=== PATIENT | female | born 1935 | race Caucasian/White ===

== ENCOUNTER 2017-01-24 14:10 | Observation (INO) | payer MEDICARE, OTHER ==
[~2017-01-24] VITALS: Ht 154.9 cm; Wt 68.4 kg
[2017-01-24] VITALS (9 sets, daily range): BP systolic 121–152; BP diastolic 56–83; PULSE 60–73; RESP 16–20; TEMP 97.5–97.8; O2SAT 93–98
--- NOTE | 2017-01-24 14:32 | PD ---
HPI Chief Complaint: dizziness Time Seen by Provider: 14:26 Travel History International Travel<30 days: No Contact w/Intl Traveler<30days: No Traveled to known affect area: No History of Present Illness HPI 81-year-old male hypertension, carotid artery aneurysm, multiple medical issues , was at her physician's office getting injections for her varicose veins by a nurse when she started getting dizzy, and disoriented. She states that she thinks her blood sugar had dropped, and she was given sugar water by the nurse. She denies any chest pains, shortness of breath, vomiting, neck pain, throat pain, or any other issues. She states that she still feels a little dizzy. Blood sugars were measured in the ER and within normal limits. Modifying Factors: None Associated Signs & Symptoms: Dizziness, disorientation Risk Factors: Diabetic PFSH Social History Tobacco Use: No Allergies-Medications (Allergen,Severity, Reaction): Coded Allergies: Iodine (Verified Allergy, Severe, Facial redness and swelling, 01/24/17) Reported Meds & Prescriptions Reported Meds & Active Scripts Active K-Tab (Potassium Chloride) 20 Meq Tab 20 Meq PO BID Reported Vasotec (Enalapril Maleate) 5 Mg Tab 5 Mg PO DAILY Lipitor (Atorvastatin Calcium) 40 Mg Tab 40 Mg PO HS Amitriptyline (Amitriptyline HCl) 50 Mg Tab 50 Mg PO HS Citalopram (Citalopram Hydrobromide) 20 Mg Tab 20 Mg PO DAILY Budesonide Neb 0.25 Mg/2 Ml Neb 0.25 Mg NEB DAILY NEB PRN Singulair (Montelukast Sodium) 10 Mg Tab 10 Mg PO HS Theophylline ER 24 HR (Theophylline) 400 Mg Tab 400 Mg PO DAILY Nexium (Esomeprazole DR) 40 Mg Capdr 40 Mg PO DAILY Duoneb (Ipratropium-Albuterol Neb) 0.5-2.5 Mg/3 Ml Neb 1 Nebule INH Q8HR NEB PRN Lantus Inj (Insulin Glargine) 1,000 Unit/10 Ml Vial 20 Units SQ HS Humalog Inj (Insulin Human Lispro) 1,000 Unit/10 Ml Vial 5-25 Units SQ ACHS Max dose at bedtime:( )units; sugars < 70,(0)units; sugars 150-199,(5)units; sugars 200-249,(10)units; sugars 250-299,(15)units; sugars 300-349,(20)units; sugars more than 349,(25)units. Review of Systems Except as stated in HPI: all other systems reviewed are Neg Physical Exam Narrative GENERAL: Well-developed elderly white female currently not in acute distress. Awake, alert, oriented 3. SKIN: Warm and dry. HEAD: Atraumatic. Normocephalic. EYES: Pupils equal and round. No scleral icterus. No injection or drainage. ENT: No nasal bleeding or discharge. Mucous membranes pink and moist. NECK: Trachea midline. No JVD. CARDIOVASCULAR: Regular rate and rhythm. No murmur appreciated. RESPIRATORY: No accessory muscle use. Clear to auscultation. Breath sounds equal bilaterally. GASTROINTESTINAL: Abdomen soft, non-tender, nondistended. Hepatic and splenic margins not palpable. MUSCULOSKELETAL: No obvious deformities. No clubbing. No cyanosis. No edema. NEUROLOGICAL: Awake and alert. No obvious cranial nerve deficits. Motor grossly within normal limits. Normal speech. PSYCHIATRIC: Appropriate mood and affect; insight and judgment normal. Data Data Last Documented VS Vital Signs Date Time Temp Pulse Resp B/P Pulse Ox O2 Delivery O2 Flow Rate FiO2 01/24/17 17:50 68 18 152/69 97 Room Air 01/24/17 14:35 97.8 Orders Electrocardiogram (01/24/17 14:26) Complete Blood Count With Diff (01/24/17 14:26) Comprehensive Metabolic Panel (01/24/17 14:26) Magnesium (Mg) (01/24/17 14:26) Troponin I (01/24/17 14:26) Act Partial Throm Time (Ptt) (01/24/17 14:26) Prothrombin Time / Inr (Pt) (01/24/17 14:26) Urinalysis - C+S If Indicated (01/24/17 14:26) Chest, Single Ap (01/24/17 14:26) Ecg Monitoring (01/24/17 14:26) Iv Access Insert/Monitor (01/24/17 14:26) Oximetry (01/24/17 14:26) Ct Brain W/O Iv Contrast(Rout) (01/24/17 14:37) Potassium Chloride Eff (K-Lyte Cl Eff) (01/24/17 16:00) Admit Order (Ed Use Only) (01/24/17 18:35) Us Carotid Arteries Comp Bilat (01/24/17 ) Labs Laboratory Tests Test 01/24/17 01/24/17 14:50 15:05 White Blood Count 6.1 TH/MM3 Red Blood Count 4.61 MIL/MM3 Hemoglobin 14.6 GM/DL Hematocrit 41.3 % Mean Corpuscular Volume 89.7 FL Mean Corpuscular Hemoglobin 31.6 PG Mean Corpuscular Hemoglobin 35.2 % Concent Red Cell Distribution Width 13.4 % Platelet Count 246 TH/MM3 Mean Platelet Volume 6.8 FL Neutrophils (%) (Auto) 54.1 % Lymphocytes (%) (Auto) 30.5 % Monocytes (%) (Auto) 12.1 % Eosinophils (%) (Auto) 1.4 % Basophils (%) (Auto) 1.9 % Neutrophils # (Auto) 3.3 TH/MM3 Lymphocytes # (Auto) 1.9 TH/MM3 Monocytes # (Auto) 0.7 TH/MM3 Eosinophils # (Auto) 0.1 TH/MM3 Basophils # (Auto) 0.1 TH/MM3 CBC Comment DIFF FINAL Differential Comment Prothrombin Time 11.3 SEC Prothromb Time International 1.0 RATIO Ratio Activated Partial 26.2 SEC Thromboplast Time Sodium Level 143 MEQ/L Potassium Level 3.0 MEQ/L Chloride Level 105 MEQ/L Carbon Dioxide Level 25.5 MEQ/L Anion Gap 13 MEQ/L Blood Urea Nitrogen 6 MG/DL Creatinine 0.62 MG/DL Estimat Glomerular Filtration 92 ML/MIN Rate Random Glucose 145 MG/DL Calcium Level 8.3 MG/DL Magnesium Level 1.9 MG/DL Total Bilirubin 0.4 MG/DL Aspartate Amino Transf 30 U/L (AST/SGOT) Alanine Aminotransferase 32 U/L (ALT/SGPT) Alkaline Phosphatase 81 U/L Troponin I LESS THAN 0.02 NG/ML Total Protein 6.3 GM/DL Albumin 3.2 GM/DL Urine Color YELLOW Urine Turbidity CLEAR Urine pH 5.5 Urine Specific [place] 1.004 Urine Protein NEG mg/dL Urine Glucose (UA) NEG mg/dL Urine Ketones TRACE mg/dL Urine Occult Blood NEG Urine Nitrite NEG Urine Bilirubin NEG Urine Leukocyte Esterase NEG Urine WBC 0-2 /hpf Urine Squamous Epithelial 0-5 /hpf Cells Urine Bacteria RARE /hpf Microscopic Urinalysis Comment CULT NOT INDICATED MDM Medical Decision Making Medical Screen Exam Complete: Yes Emergency Medical Condition: Yes Medical Record Reviewed: Yes Interpretation(s) EKG shows NSR, no ST elevation or depression, and no arrhythmias. No significant T-wave inversions. Laboratory Tests Test 01/24/17 01/24/17 14:50 15:05 Mean Platelet Volume 6.8 FL (7.0-11.0) Monocytes (%) (Auto) 12.1 % (0.0-8.0) Potassium Level 3.0 MEQ/L (3.5-5.1) Blood Urea Nitrogen 6 MG/DL (7-18) Random Glucose 145 MG/DL (74-106) Calcium Level 8.3 MG/DL (8.5-10.1) Troponin I LESS THAN 0.02 NG/ML (0.02-0.05) Total Protein 6.3 GM/DL (6.4-8.2) Albumin 3.2 GM/DL (3.4-5.0) Urine Ketones TRACE mg/dL (NEG) Urine Bacteria RARE /hpf (NONE) Last [address] 01/24/17 1437 Signed Impressions: Service Date/Time: Tuesday, January 24, 2017 15:53 - CONCLUSION: Normal examination. Kyle Morejon MD Chest X-Ray 01/24/17 1426 Signed Impressions: Service Date/Time: Tuesday, January 24, 2017 14:32 - CONCLUSION: No acute disease. Elevation of the right hemidiaphragm. El Flores MD Differential Diagnosis Dizziness, disorientationhypoglycemia versus metabolic issues versus medication side effect Narrative Course Patient has no focal neurological deficits. She is oriented 3 although mildly confused about what happened. It is unclear whether she may have had a hypoglycemic episode and after drinking the sugar water, her blood sugar is more within the normal range now. At this point, lab work did show some hypokalemia and potassium was given in the ER. My plan would be to admit her for disorientation and hypokalemia. In addition, patient states that she has a carotid artery aneurysm which her primary care doctor has been following for at least a year. She states that it makes her nauseous at times. But, patient has had no pain in the neck or throat. She states that she does not feel that there is any change it with is currently. However, considering her dizziness, this warrants further evaluation. Case is discussed with Dr. Manning for admission. Diagnosis Primary Impression: DIZZINESS AND GIDDINESS Additional Impression: Hypokalemia Admitting Information Admitting Physician Requests: Admit Med/Other Pt SpecificInfo: Prescription(s) given Scripts Potassium Chloride ER (K-Tab)20 Meq Tab20 Meq PO BID #10 TAB Ref 0 Prov:Selam Carreon MD 01/24/17 Disposition: 01 DISCHARGE HOME Condition: Stable Selam Carreon MD Jan 24, 2017 14:32
[2017-01-24] MEDS ORDERED: BUDE0.25 NEB (14:45)
[2017-01-24] MEDS ORDERED: IPRASOL INH (14:45)
[2017-01-24] MEDS ORDERED: NEXI40CA PO (14:45)
[2017-01-24] MEDS ORDERED: THEO400T2 PO (14:45)
[2017-01-24] MEDS ORDERED: AMIT50TA3 PO (14:45)
[2017-01-24] MEDS ORDERED: ENAL5TAB98 PO (14:45)
[2017-01-24] MEDS ORDERED: MONT10TA2 PO (14:45)
[2017-01-24] MEDS ORDERED: HUMALOG SQ (14:45)
[2017-01-24] MEDS ORDERED: LIPI40TA PO (14:45)
[2017-01-24] MEDS ORDERED: LANTUS2P SQ (14:45)
[2017-01-24] MEDS ORDERED: CITA20TA4 PO (14:45)
[2017-01-24 15:10] LABS: AUTOMATED NEUTROPHIL # 3.3 TH/MM3 (1.8-7.7); BASOPHIL # 0.1 TH/MM3 (0-0.2); BASOPHIL % 1.9 % (0.0-2.0); EOSINOPHIL # 0.1 TH/MM3 (0-0.4); EOSINOPHIL % 1.4 % (0.0-4.0); HEMATOCRIT 41.3 % (35.0-46.0); HEMO FLAGS DIFF FINAL; LYMPH % 30.5 % (9.0-44.0); LYMPHOCYTE # 1.9 TH/MM3 (1.0-4.8); MEAN CELL VOLUME 89.7 FL (80.0-100.0); MEAN CORPUSCULAR HEMOGLOBIN 31.6 PG (27.0-34.0); MEAN CORPUSCULAR HGB CONC 35.2 % (32.0-36.0); MONO % 12.1 % (0.0-8.0); NEUT % 54.1 % (16.0-70.0); PLATELET COUNT 246 TH/MM3 (150-450); RED BLOOD COUNT 4.61 MIL/MM3 (4.00-5.30); RED CELL DISTRIBUTION WIDTH 13.4 % (11.6-17.2); WHITE BLOOD COUNT 6.1 TH/MM3 (4.0-11.0)
[2017-01-24 15:19] LABS: BLOOD, URINE NEG (NEG); GLUCOSE,URINE NEG (NEG); KETONE, URINE TRACE mg/dL (NEG); NITRITE,URINE NEG (NEG); PH, URINE 5.5 (5.0-8.5)
--- NOTE | 2017-01-24 15:19 | RADHPO ---
EXAM DATE/TIME: 01/24/2017 14:32 [facility] COMPARISON: No previous studies available for comparison. INDICATIONS : Dizziness and weakness. MEDICAL HISTORY : Chronic obstructive pulmonary disease. Asthma. SURGICAL HISTORY : None. ENCOUNTER: Initial ACUITY: 1 day PAIN SCORE: 0/10 LOCATION: Bilateral chest FINDINGS: A single view of the chest demonstrates the lungs to be symmetrically aerated without evidence of mas s, infiltrate or effusion. The cardiomediastinal contours are unremarkable. Osseous structures are intact. The right hemidiaphragm is mildly elevated. CONCLUSION: No acute disease. Elevation of the right hemidiaphragm. El Flores MD on January 24, 2017 at 15:17 Board Certified Radiologist. This report was verified electronically.
[2017-01-24 15:23] LABS: APTT (PATIENT) 26.2 SEC (24.3-30.1); PROTHROMBIN TIME - PATIENT 11.3 SEC (9.8-11.6)
[2017-01-24 15:27] LABS: BACTERIA, URINE RARE /hpf; COMMENT (UR) CULT NOT INDICATED; CULTURE IF INDICATED CULT NOT INDICATED; SQUAMOUS EPITHELIAL CELL URINE 0-5 /hpf (0-5); URINE COLOR YELLOW (YELLW/STRAW); WBC, URINE 0-2 /hpf (0-5)
[2017-01-24 15:48] LABS: ALKALINE PHOSPHATASE 81 U/L (45-117); ALT (GPT) 32 U/L (10-53); ANION GAP 13 MEQ/L (5-15); AST (GOT) 30 U/L (15-37); BICARBONATE 25.5 MEQ/L (21.0-32.0); BLOOD UREA NITROGEN 6 MG/DL (7-18); CHLORIDE 105 MEQ/L (98-107); GLOMERULAR FILTRATION RATE 92 ML/MIN (>89); MAGNESIUM 1.9 MG/DL (1.5-2.5); SODIUM (NA) 143 MEQ/L (136-145); TOTAL BILIRUBIN ADULT 0.4 MG/DL (0.2-1.0)
[2017-01-24] MEDS ORDERED: POTASSIUM CHLORIDE 25 MEQ EFFERVESCENT TAB PO ONE (16:00)
--- NOTE | 2017-01-24 16:28 | RADHPO ---
EXAM DATE/TIME: 01/24/2017 15:53 [facility] COMPARISON: No previous studies available for comparison. INDICATIONS : Altered mental status. Dizziness. RADIATION DOSE: 65.60 CTDIvol (mGy) MEDICAL HISTORY : Hypertension. Diabetes mellitus type 2. SURGICAL HISTORY : Left mastoid. ENCOUNTER: Initial ACUITY: 1 day PAIN SCALE: 0/10 LOCATION: cranial TECHNIQUE: Multiple contiguous axial images were obtained of the head. Using automated exposure control and adj ustment of the mA and/or kV according to patient size, radiation dose was kept as low as reasonably a chievable to obtain optimal diagnostic quality images. FINDINGS: CEREBRUM: The ventricles are normal for age. No evidence of midline shift, mass lesion, hemorrhage or acute in farction. No extra-axial fluid collections are seen. POSTERIOR FOSSA: The cerebellum and brainstem are intact. The 4th ventricle is midline. The cerebellopontine angle i s unremarkable. EXTRACRANIAL: The visualized portion of the orbits is intact. SKULL: The calvaria is intact. No evidence of skull fracture. CONCLUSION: Normal examination. Kyle Morejon MD on January 24, 2017 at 16:25 Board Certified Radiologist. This report was verified electronically.
[2017-01-24] MEDS ORDERED: POTA1TAB4 PO (16:37)
[2017-01-24] MEDS ORDERED: SODIUM CHLOR 0.9% 1000 ML INJ 1,000 ML IV SCH (19:20)
[2017-01-24] MEDS ORDERED: DEXTROSE 50% IN WATER 50 ML VIAL(D50) IV PUSH PRN (19:30)
[2017-01-24] MEDS ORDERED: RESP: BUDESONIDE 0.25 MG/2 ML NEB NEB PRN (19:30)
[2017-01-24] MEDS ORDERED: GLUCAGON 1 MG/ML VIAL OTHER PRN ×2 (19:30)
[2017-01-24] MEDS ORDERED: ENALAPRILAT 1.25 MG/ML VIAL IV PRN (19:30)
[2017-01-24] MEDS ORDERED: SODIUM CHLORIDE 0.9% FLUSH 10 ML FLUSH IV FLUSH PRN (19:30)
--- NOTE | 2017-01-24 20:02 | RADHPO ---
EXAM DATE/TIME: 01/24/2017 19:20 [facility] COMPARISON: No previous studies available for comparison. INDICATIONS : Weakness. MEDICAL HISTORY : Hypertension. Hypercholesterolemia. Diabetic. Carotid artery aneurysm. SURGICAL HISTORY : Appendectomy. Cholecystectomy. Hysterectomy. Left knee replacement. ENCOUNTER: Initial ACUITY: 1 day PAIN SCORE: 0/10 LOCATION: Bilateral neck PEAK SYSTOLIC VELOCITIES (cm/sec): ICA/CCA RATIO: Right: 1.5 Left: 1.2 ICA: Right: 91 Left: 96 CCA: Right: 59 Left: 81 ECA: Right: 96 Left: 103 VERTEBRAL: Right: 49 antegrade Left: 39 antegrade Elevated flow velocities and ICA/CCA ratios have been found to correlate with increased degrees of vessel stenosis, calculated as percentage of diameter relative to a normal segment of distal ICA/CCA FINDINGS: Antegrade flow is seen in both vertebral arteries. There is mild to moderate atherosclerotic plaquing at the origin of both ICAs without any significant stenosis. The patient reports that he has an aneu rysm pulsating behind his throat on the right side, however we could not document any aneurysm based on this examination. CONCLUSION: No evidence for hemodynamically significant stenosis. Josh Draper MD on January 24, 2017 at 19:59 Board Certified Radiologist. This report was verified electronically.
[2017-01-24] MEDS ORDERED: INSULIN DETEMIR 100 UNITS/ML VIAL SQ SCH (21:00)
[2017-01-24] MEDS ORDERED: INSULIN NovoLIN REGULAR SUPPLEMENTAL SCALE SQ SCH (21:00)
[2017-01-24] MEDS: SODIUM CHLORIDE 0.9% FLUSH 10 ML FLUSH IV FLUSH SCH (21:00)
[2017-01-24] MEDS: INSULIN ASPART SUPPLEMENTAL SCALE SQ SCH (21:29)
[2017-01-24] MEDS: AMITRIPTYLINE HCL 50 MG TAB PO SCH (21:29)
[2017-01-24] MEDS: ATORVASTATIN 40 MG TAB PO SCH (21:29)
[2017-01-24] MEDS: MONTELUKAST SODIUM 10 MG TAB PO SCH (21:29)
[2017-01-24 22:43] LABS: THEOPHYLLINE 5.4 MCG/ML (10.0-20.0)
[2017-01-25] VITALS (7 sets, daily range): BP systolic 121–147; BP diastolic 57–73; PULSE 60–89; RESP 18–20; TEMP 97.2–97.9; O2SAT 96–98
[2017-01-25] MEDS: INSULIN ASPART SUPPLEMENTAL SCALE SQ SCH ×4 (05:16→21:00)
[2017-01-25] MEDS: PANTOPRAZOLE SOD 40 MG DELAYED RELEASE TAB PO SCH (08:33)
[2017-01-25] MEDS: ENALAPRIL MALEATE 5 MG TAB PO SCH (08:33)
[2017-01-25] MEDS: CITALOPRAM HYDROBROMIDE 20 MG TAB PO SCH (08:33)
[2017-01-25] MEDS: SODIUM CHLORIDE 0.9% FLUSH 10 ML FLUSH IV FLUSH SCH ×2 (08:33→21:00)
[2017-01-25] MEDS: THEOPHYLLINE 200 MG EXTENDED RELEASE CAP PO SCH (08:34)
[2017-01-25] MEDS: SODIUM CHLOR 0.9% 1000 ML INJ 1,000 ML IV SCH (08:45)
--- NOTE | 2017-01-25 08:45 | HHI.HP ---
HPI Service [facility] Hospitalists Primary Care Physician Non-Staff Admission Diagnosis dizziness/hypokalemia Diagnoses: Chief Complaint: Dizziness Travel History International Travel<30 Days: No Contact w/Intl Traveler <30 Da: No Traveled to Known Affected Are: No History of Present Illness This is a 81-year-old female with a past medical history significant for insulin -dependent diabetes, hypertension, COPD, dyslipidemia, depression and history of carotid artery aneurysm with resultant dysphagia who presented to [facility] ED with complaints of dizziness. Patient states that she was at a physician's office getting injections for her varicose veins when shortly following the procedure she developed dizziness and unsteady gait with feeling of generalized weakness. Patient states she was given sugar water by the tech with improvement in her symptoms. She denies any associated chest pain, shortness of breath, nausea, vomiting, cough, palpitations, vision changes, hearing loss, slurred speech, focal weakness or numbness or tingling. She does report having a sensation that she was going to pass out. Patient states that she was recently ill with nausea, vomiting and diarrhea for a week after being visited by her sick grandchildren. As a result she had not been eating and drinking her normal amount and states that she thinks she might have been dehydrated. She has taken her insulin for 3 days due to her decrease in appetite. The symptoms had resolved about 2 days prior to having her varicose veins injected. She was also treated for shingles a few weeks ago. She reports that she was basically feeling back to her normal self by the time she came to the ED. In the ED, carotid ultrasounds were obtained and showed no evidence for hemodynamically significant stenosis. Chest x-ray showed no acute disease. Head CT was normal. Glucose was 145. CBC was unremarkable. She was noted to have some hypokalemia with a potassium of 3.0 and received repletion while in the ED. Troponin was less than 0.02. Review of Systems Constitutional: COMPLAINS OF: Dizziness (as stated in history of present illness), Change in appetite (decreased appetite for the past week due to suspected gastroenteritis), DENIES: Fever, Chills Endocrine: DENIES: Polydipsia, Polyuria Eyes: COMPLAINS OF: Diplopia (chronic, unchanged, patient wears prism lenses), DENIES: Blurred vision, Vision loss Ears, nose, mouth, throat: COMPLAINS OF: Tinnitus (chronic, unchanged), DENIES : Throat pain, Ear Pain, Running Nose, Sinus Pain Respiratory: DENIES: Cough, Wheezing, Shortness of breath Cardiovascular: DENIES: Chest pain, Palpitations, Syncope, Lower Extremity Edema Gastrointestinal: COMPLAINS OF: Diarrhea, Nausea, Vomiting (recent suspected gastroenteritis with nausea vomiting and diarrhea 1 week, now resolved), DENIES: Abdominal pain, Black stools, Bloody stools Genitourinary: DENIES: Urgency, Hematuria, Dysuria Musculoskeletal: DENIES: Joint Swelling, Back pain, Neck pain Integumentary: DENIES: Pruritus, Rash Hematologic/lymphatic: DENIES: Lymphadenopathy Immunologic/allergic: DENIES: Urticaria Neurologic: COMPLAINS OF: Abnormal gait (felt unsteady after receiving varicose veins injections yesterday, now resolved), DENIES: Headache, Localized weakness, Paresthesias, Seizures, Speech Problems Psychiatric: COMPLAINS OF: Depression (chronic depression, worse since the loss of her of 40 years in September 2016), DENIES: Confusion, Suicidal Ideation Past Family Social History Past Medical History Hypertension Insulin-dependent diabetes Dyslipidemia GERD Carotid artery aneurysm COPD Depression Past Surgical History Cataract surgery Partial thyroidectomy Cholecystectomy Hysterectomy Laminectomy L3 to L5 Left total knee replacement Left mastoidectomy with excision of cholesteatoma Reported Medications K-Tab (Potassium Chloride) 20 Meq Tab 20 Meq PO BID Vasotec (Enalapril Maleate) 5 Mg Tab 5 Mg PO DAILY Lipitor (Atorvastatin Calcium) 40 Mg Tab 40 Mg PO HS Amitriptyline (Amitriptyline HCl) 50 Mg Tab 50 Mg PO HS Citalopram (Citalopram Hydrobromide) 20 Mg Tab 20 Mg PO DAILY Budesonide Neb 0.25 Mg/2 Ml Neb 0.25 Mg NEB DAILY NEB PRN Singulair (Montelukast Sodium) 10 Mg Tab 10 Mg PO HS Theophylline ER 24 HR (Theophylline) 400 Mg Tab 400 Mg PO DAILY Nexium (Esomeprazole DR) 40 Mg Capdr 40 Mg PO DAILY Duoneb (Ipratropium-Albuterol Neb) 0.5-2.5 Mg/3 Ml Neb 1 Nebule INH Q8HR NEB PRN Lantus Inj (Insulin Glargine) 1,000 Unit/10 Ml Vial 20 Units SQ HS Humalog Inj (Insulin Human Lispro) 1,000 Unit/10 Ml Vial 5-25 Units SQ ACHS Max dose at bedtime:( )units; sugars < 70,(0)units; sugars 150-199,(5)units; sugars 200-249,(10)units; sugars 250-299,(15)units; sugars 300-349,(20)units; sugars more than 349,(25)units. Allergies: Coded Allergies: Iodine (Verified Allergy, Severe, Facial redness and swelling, 01/24/17) Active Ordered Medications Current Medications Medications (Trade) Dose Ordered Sig/Homer Route Start Time Stop Time Status Last Admin (NS Flush) 2 ml BID IV FLUSH 01/24/17 21:00 01/24/17 21:00 (NS Flush) 2 ml UNSCH PRN IV FLUSH 01/24/17 19:30 (Vasotec Inj) 1.25 mg Q4H PRN IV 01/24/17 19:30 (D50w (Vial) Inj) 25 ml UNSCH PRN IV PUSH 01/24/17 19:30 (Glucagon Inj) 1 mg UNSCH PRN OTHER 01/24/17 19:30 (Elavil) 50 mg HS PO 01/24/17 21:00 01/24/17 21:29 (Lipitor) 40 mg HS PO 01/24/17 21:00 01/24/17 21:29 (CeleXA) 20 mg DAILY PO 01/25/17 09:00 (Vasotec) 5 mg DAILY PO 01/25/17 09:00 (Levemir Inj) 20 units HS SQ 01/24/17 21:00 01/24/17 21:30 (Singulair) 10 mg HS PO 01/24/17 21:00 01/24/17 21:29 (Gunner-24) 400 mg DAILY PO 01/25/17 09:00 (Protonix) 40 mg DAILY PO 01/25/17 09:00 Family History Father with history of CVA 2 Brother history of CVA 2 Social History Patient has a remote history of tobacco use of a half pack per day for 17 years but quit in 1981. She has rare alcohol consumption of a glass of wine. She denies any illicit drug use. Patient is recently after losing her of 40 years of September 2016. She has 2 daughters neither of whom live in the area, one lives in [place], [place] the other in [facility]. Physical Exam Vital Signs Vital Signs Date Time Temp Pulse Resp B/P Pulse Ox O2 Delivery O2 Flow Rate FiO2 01/25/17 04:00 97.6 60 20 147/68 97 01/24/17 23:39 60 01/24/17 23:30 66 20 124/83 97 01/24/17 23:30 97.5 61 20 150/72 98 01/24/17 22:06 68 20 137/65 98 01/24/17 21:15 66 20 121/68 98 01/24/17 20:08 66 20 136/63 98 01/24/17 19:50 20 98 01/24/17 17:50 68 18 152/69 97 Room Air 01/24/17 15:35 68 16 124/56 93 Room Air 01/24/17 15:00 96 Room Air 01/24/17 14:35 97.8 73 16 137/65 96 Physical Exam GENERAL: This is a well-nourished, well-developed patient, in no apparent distress. SKIN: No rashes, ecchymoses or lesions. Cool and dry. HEAD: Atraumatic. Normocephalic. No temporal or scalp tenderness. EYES: Pupils equal round and reactive. Extraocular motions intact. No scleral icterus. No injection or drainage. ENT: Nose without bleeding, purulent drainage or septal hematoma. 3cm pulsating right sided mass noted in posterior pharynx. Airway patent. NECK: Trachea midline. No JVD or lymphadenopathy. Supple, nontender, no meningeal signs. CARDIOVASCULAR: Regular rate and rhythm without murmurs, gallops, or rubs. RESPIRATORY: Clear to auscultation. Breath sounds equal bilaterally. No wheezes , rales, or rhonchi. GASTROINTESTINAL: Abdomen soft, non-tender, nondistended. No hepato-splenomegaly , or palpable masses. No guarding. MUSCULOSKELETAL: Extremities without clubbing or cyanosis. Trace edema RLE. LLE wrapped in SIGIFREDO s/p sclerotherapy. No calf tenderness. NEUROLOGICAL: Awake and alert. Moves all extremities. No focal neurologic deficit. Laboratory Laboratory Tests Test 01/24/17 01/24/17 14:50 15:05 White Blood Count 6.1 Red Blood Count 4.61 Hemoglobin 14.6 Hematocrit 41.3 Mean Corpuscular Volume 89.7 Mean Corpuscular Hemoglobin 31.6 Mean Corpuscular Hemoglobin 35.2 Concent Red Cell Distribution Width 13.4 Platelet Count 246 Mean Platelet Volume 6.8 Neutrophils (%) (Auto) 54.1 Lymphocytes (%) (Auto) 30.5 Monocytes (%) (Auto) 12.1 Eosinophils (%) (Auto) 1.4 Basophils (%) (Auto) 1.9 Neutrophils # (Auto) 3.3 Lymphocytes # (Auto) 1.9 Monocytes # (Auto) 0.7 Eosinophils # (Auto) 0.1 Basophils # (Auto) 0.1 CBC Comment DIFF FINAL Differential Comment Prothrombin Time 11.3 Prothromb Time International 1.0 Ratio Activated Partial 26.2 Thromboplast Time Sodium Level 143 Potassium Level 3.0 Chloride Level 105 Carbon Dioxide Level 25.5 Anion Gap 13 Blood Urea Nitrogen 6 Creatinine 0.62 Estimat Glomerular Filtration 92 Rate Random Glucose 145 Calcium Level 8.3 Magnesium Level 1.9 Total Bilirubin 0.4 Aspartate Amino Transf 30 (AST/SGOT) Alanine Aminotransferase 32 (ALT/SGPT) Alkaline Phosphatase 81 Troponin I LESS THAN 0.02 Total Protein 6.3 Albumin 3.2 Theophylline Level 5.4 Urine Color YELLOW Urine Turbidity CLEAR Urine pH 5.5 Urine Specific [place] 1.004 Urine Protein NEG Urine Glucose (UA) NEG Urine Ketones TRACE Urine Occult Blood NEG Urine Nitrite NEG Urine Bilirubin NEG Urine Leukocyte Esterase NEG Urine WBC 0-2 Urine Squamous Epithelial 0-5 Cells Urine Bacteria RARE Microscopic Urinalysis Comment CULT NOT INDICATED Result Diagram: 01/24/17 1450 01/24/17 1450 Imaging Last [address] 01/24/17 1437 Signed Impressions: Service Date/Time: Tuesday, January 24, 2017 15:53 - CONCLUSION: Normal examination. Kyle Morejon MD Chest X-Ray 01/24/17 1426 Signed Impressions: Service Date/Time: Tuesday, January 24, 2017 14:32 - CONCLUSION: No acute disease. Elevation of the right hemidiaphragm. El Flores MD Carotid Artery Ultrasound 01/24/17 0000 Signed Impressions: Service Date/Time: Tuesday, January 24, 2017 19:20 - CONCLUSION: No evidence for hemodynamically significant stenosis. Josh Draper MD Assessment and Plan Assessment and Plan 81-year-old female with a past medical history significant for insulin- dependent diabetes, hypertension, COPD, dyslipidemia, depression and history of carotid artery aneurysm who presented to [facility] ED with complaints of dizziness. Admitted overnight per discussion with ED physician patient is a high risk for TIA needed observation admission to Rule out TIA - Admitted to observation - Monitor on telemetry for any signs of arrhythmia - Mostly dehydration with history of recent suspected gastroenteritis with possible vasovagal episode following leg vein varicose injections - Chest x-ray personally interpreted and unremarkable. Carotid ultrasound shows no evidence of significant stenosis. CT of the head negative. - IV fluids - Up with PT - Neuro checks - Echocardiogram - Holter monitor as outpatient - Orthostatic blood pressures - Carotid ultrasound is being done Hypertension - Resume home meds - monitor BP Diabetes - Accu-Chek - Insulin sliding scale - A1c is pending - Hold home insulin for now COPD - Resume home bronchodilators - Supplemental oxygen when necessary - DuoNeb's when necessary - Theophylline level low 5.4 Dyslipidemia - Resume home statin - Lipid panel pending Hypokalemia - Given repletion in the ED - Recheck potassium level and determine if further repletion as indicated Right-sided carotid artery aneurysm - Patient states she does not follow up with anyone - History of left mastoidectomy and excision of cholesteatoma as well as partial thyroidectomy secondary to mass on the isthmus - Carotid ultrasound obtained this admission unable to appreciate aneurysm on study - Complaining it is increasing in size and causing difficulty with swallowing - Strong family history CVA - Discussed with Dr. Hendricks who will be consulted to see the patient. CTA of carotid ordered at his request. DVT prophylaxis - SCD/MIKEL hose - Up with PT Written by Janeth Aguilar PA-C acting as scribe for Dr. Manning on 01/25/17 at 13:16. Janeth Aguilar Jan 25, 2017 08:45 Kathya Manning MD Jan 25, 2017 14:55
[2017-01-25] MEDS: RESP: ALBUTEROL 2.5 MG/IPRATROPIUM 0.5 MG NEB (PRN) NEB ×2 (08:51→20:10)
[2017-01-25] MEDS: ASPIRIN EC 81 MG TABEC PO SCH (09:08)
[2017-01-25 10:05] LABS: BICARBONATE 26.2 MEQ/L (21.0-32.0); HDL CHOLESTEROL 40.6 MG/DL (40.0-60.0); POTASSIUM 3.1 MEQ/L (3.5-5.1)
--- NOTE | 2017-01-25 11:04 | EKG ---
Date Performed: 01/24/2017 Time Performed: 14:38:34 PTAGE: 81 years EKG: Sinus rhythm Left ventricular hypertrophy by voltage only Abnormal ECG NO PREVIOUS TRACING DOCTOR: Faheem Guthrie Interpretating Date/Time 01/25/2017 11:03:17
[2017-01-25 17:24] LABS: HEMOGLOBIN A1a 1.1 %; HEMOGLOBIN A1b 1.9 %; HEMOGLOBIN Ao 83.7 %; HEMOGLOBIN LA1C 1.8 %; HEMOGLOBIN P3 3.6 %
--- NOTE | 2017-01-25 20:01 | EC ---
Study Study Date:01/25/2017 STUDY CONCLUSIONS SUMMARY - Left ventricle: The cavity size was normal. Wall thickness was normal. Systolic function was normal. The estimated ejection fraction was 65%. Wall motion was normal; there were no regional wall motion abnormalities. - Mitral valve: Mild regurgitation. - Right ventricle: The cavity size was mildly dilated. Wall thickness was normal. - Tricuspid valve: Mild regurgitation. - Pulmonary arteries: Systolic pressure was mildly increased. PA peak pressure: 42mm Hg (S). If LV function is below 40, please consider prescribing an ACEI or ARB or document rationale for non-use. PROCEDURE DATA STUDY STATUS: Elective. Procedure: Transthoracic echocardiography. Image quality was good. Scanning was performed from the parasternal, apical, and subcostal acoustic windows. Study completion: The patient tolerated the procedure well. Transthoracic echocardiography. M-mode, complete 2D, complete spectral Doppler, and color Doppler. Height: Height: 61in. Weight: Weight: 148.7lb. Body mass index: BMI: 28.2kg/m^2. Body surface area: BSA: 1.67m^2. Patient status: Inpatient. CARDIAC ANATOMY LEFT VENTRICLE: The cavity size was normal. Wall thickness was normal. Systolic function was normal. The estimated ejection fraction was 65%. Wall motion was normal; there were no regional wall motion abnormalities. AORTIC VALVE: Trileaflet; mildly thickened leaflets. Doppler: Transvalvular velocity was within the normal range. There was no stenosis. No regurgitation. Valve area: 2.04cm^2 (Vmax). Indexed valve area: 1.22cm^2/m^2 (Vmax). AORTA: Aortic root: The aortic root was normal in size. MITRAL VALVE: Structurally normal valve. Doppler: Transvalvular velocity was within the normal range. There was no evidence for stenosis. Mild regurgitation. LEFT ATRIUM: The atrium was normal in size. RIGHT VENTRICLE: The cavity size was mildly dilated. Wall thickness was normal. PULMONIC VALVE: Doppler: Transvalvular velocity was within the normal range. There was no evidence for stenosis. No regurgitation. TRICUSPID VALVE: Structurally normal valve. Doppler: Transvalvular velocity was within the normal range. Mild regurgitation. PULMONARY ARTERY: The main pulmonary artery was normal-sized. Systolic pressure was mildly increased. RIGHT ATRIUM: The atrium was normal in size. PERICARDIUM: There was no pericardial effusion. SYSTEMIC VEINS: Inferior vena cava: The vessel was normal in size. Patient weight: 148.7lb _Ejection fraction:_ 65-75% _Fractional shortening:_ 32% up to 5Kg 5-11.5Kg 11.6-22.9Kg 23-45Kg 45-57Kg Aortic Root 7-13 <17 13-22 17-27 17-27 LA diam 6-13 <23 24-38 33-47 37-40 RVID 10-17 7-15 7-15 7-18 8-17 LVIDd 12-22 <32 24-38 33-47 37-40 LVPW 2-4 3-6 5-7 6-8 7-8 IVS 2-4 3-6 5-7 6-8 7-8 BASIC MEASUREMENTS ADULT NORMAL Left ventricle LV internal dimension, ED, chordal *37.6 mm 43-52 level, PLAX LV internal dimension, ES, chordal 26.4 mm 23-38 level, PLAX Fractional shortening, chordal level, 30 % >29 PLAX LV posterior wall thickness, ED 8.61 mm IVS/LVPW ratio, ED 0.99 <1.3 Ventricular septum Septal thickness, ED 8.55 mm Aortic valve Leaflet separation 16 mm 15-26 BASIC MEASUREMENTS ADULT NORMAL Aortic valve Leaflet separation 16 mm 15-26 Aorta Root diameter, ED 27 mm 20-37 Left atrium Anterior-posterior dimension, ES 31 mm 19-40 Anterior-posterior dimension index, ES 1.86 cm/m^2 <2.2 LA/aortic root ratio 1.15 DOPPLER MEASUREMENTS ADULT NORMAL Main pulmonary artery Pressure, S *42 mm Hg =30 Aortic valve Peak velocity, S 153 cm/s Valve area, Vmax 2.04 cm^2 Valve area index, Vmax 1.22 cm^2/m^2 Mitral valve Peak E-wave velocity 65.6 cm/s Peak A-wave velocity 85.4 cm/s Deceleration time 183 ms 150-230 Peak E/A ratio 0.8 Maximal regurgitant velocity 316 cm/s Tricuspid valve Regurgitant peak velocity 284 cm/s Peak RV-RA gradient, S 32 mm Hg Maximal regurgitant velocity 284 cm/s Systemic veins Estimated CVP 10 mm Hg Right ventricle RV pressure, S *42 mm Hg <30 Pulmonic valve Peak velocity, S 105 cm/s LEGEND: Mean values are shown as u=mean value. Asterisk (*) diana values outside specified normal range. Amended JamesHoodhernando [id number]
--- NOTE | 2017-01-25 20:32 | MB ---
cc: MAI MATOS MD DATE OF CONSULTATION: 01/25/2017 REASON FOR CONSULTATION: Possible carotid artery aneurysm. HISTORY OF PRESENT DISEASE: This 81 year-old lady appears somewhat younger than her actual age, presents with dizziness and weakness. The patient states that for about a week or two she had diarrhea, nausea and vomiting and lost some weight. The patient states that she also was seen by somebody for varicose veins and she was told that she has something pulsating in her neck, hence the suspicion of the aneurysm somehow came up. The patient is now in the process of workup. PAST MEDICAL HISTORY: 1. Diabetes mellitus 2. COPD 3. Hypertension. 4. Depression. PAST SURGICAL HISTORY: 1. Cholecystectomy. 2. Partial thyroidectomy. 3. Cataract surgery. 4. Hysterectomy 5. Left total knee replacement 6. Some sort of laminectomy probably lumbar. MEDICATIONS: Can be found in the record. SOCIAL HISTORY: The patient smoked many years ago but now she is eating and drinking very healthy. Her only last year at [facility] and she is not happy with them. 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 PHYSICAL EXAMINATION: The patient is an 81 year-old lady in no acute distress. HEENT: Normocephalic, no trauma to the head. Pupils equal and reactive. Extraocular movements intact. NECK: Bilateral carotid pulses, no bruits. Indeed on palpation of the neck, the patient has some several small lymph nodes in the neck and in the submandibular area on the right on palpation it really does appear that there is a pulsating mass. Having said that, this measures about 1 cm in diameter and below is the explanation. HEART: Regular rhythm. CHEST: Bilateral breath sounds. ABDOMEN: Soft, active bowel sounds. No masses. Scars from previous surgery. EXTREMITIES: Within normal limits with good proximal and distal pulses. No signs of vascular deficit. It should be noted that the patient probably lost a fair amount of weight in a very short period of time considering that she has a panus, looks like she might have weighed more in the past. IMPRESSION/RECOMMENDATIONS: Patient with question of a pulsating mass in the neck. Indeed on palpation, the patient does have about 1 cm neck mass in the carotid area which is pulsatile. Nonetheless, more often than not, this is not an aneurysm but either a lymph node adjacent to the carotid artery transmitting the pulsations or rarely glomus caroticus which is of course benign tumor of the carotid bifurcation and receptor area. Either way, we will do CTA on the patient and see which structures I hear involve this is a spurious diagnosis or something we should proceed further workup on. Thank you for the referral. I will continue to follow the patient with you. Mai GIORDANO /7:56 PM /8:24 PM
[2017-01-25] MEDS: MONTELUKAST SODIUM 10 MG TAB PO SCH (21:45)
[2017-01-25] MEDS: ATORVASTATIN 40 MG TAB PO SCH (21:45)
[2017-01-25] MEDS: AMITRIPTYLINE HCL 50 MG TAB PO SCH (21:45)
[2017-01-26] VITALS (7 sets, daily range): BP systolic 134–189; BP diastolic 73–85; PULSE 62–88; RESP 14–20; TEMP 96.2–98.4; O2SAT 92–96
[2017-01-26] MEDS: predniSONE 50 MG TAB PO SCH ×3 (01:16→13:26)
[2017-01-26] MEDS: SODIUM CHLOR 0.9% 1000 ML INJ 1,000 ML IV SCH ×2 (03:36→17:21)
[2017-01-26] MEDS: INSULIN ASPART SUPPLEMENTAL SCALE SQ SCH ×4 (05:53→21:05)
[2017-01-26] MEDS: SODIUM CHLORIDE 0.9% FLUSH 10 ML FLUSH IV FLUSH SCH ×2 (09:00→20:58)
[2017-01-26] MEDS ORDERED: POTASSIUM CHLORIDE 10 MEQ CONTROLLED RELEASE TAB PO ONE (09:00)
[2017-01-26] MEDS: ENALAPRIL MALEATE 5 MG TAB PO SCH (10:35)
[2017-01-26] MEDS: THEOPHYLLINE 200 MG EXTENDED RELEASE CAP PO SCH (10:35)
[2017-01-26] MEDS: ASPIRIN EC 81 MG TABEC PO SCH (10:35)
[2017-01-26] MEDS: CITALOPRAM HYDROBROMIDE 20 MG TAB PO SCH (10:35)
[2017-01-26] MEDS: PANTOPRAZOLE SOD 40 MG DELAYED RELEASE TAB PO SCH (10:35)
[2017-01-26 11:49] LABS: BICARBONATE 24.7 MEQ/L (21.0-32.0); POTASSIUM 3.8 MEQ/L (3.5-5.1)
[2017-01-26] MEDS ORDERED: diphenhydrAMINE HCL 50 MG CAP PO ONE (13:00)
[2017-01-26] MEDS ORDERED: IOHEXOL 350 MG/ML 10 ML VIAL (for RAD DIAG) IV ONE (14:53)
--- NOTE | 2017-01-26 16:20 | RADHPO ---
EXAM DATE/TIME: 01/26/2017 14:39 [place] COMPARISON: CT BRAIN W/O CONTRAST, January 24, 2017, 15:53. INDICATIONS : Evaluate for aneurysm. IV CONTRAST: 90 cc Omnipaque 350 (iohexol) IV RADIATION DOSE: 42.77 CTDIvol (mGy) MEDICAL HISTORY : Diabetes mellitus type 2. Hypertension. SURGICAL HISTORY : Hysterectomy. Appendectomy.Cholecystectomy. ENCOUNTER: Initial ACUITY: 2 days PAIN SCALE: 0/10 LOCATION: neck Elevated flow velocities and ICA/CCA ratios have been found to correlate with increased degrees of vessel stenosis, calculated as percentage of diameter relative to a normal segment of distal ICA/CCA. Patient was premedicated for underlying contrast media allergy. TECHNIQUE: Volumetric scanning was performed using a multirow detector CT scanner. The data was post processed with a variety of visualization algorithms including full-volume maximum intensity projection, multip lanar sliding thin-slab reformation, curved-planar reformation, and surface-rendering techniques. Us ing automated exposure control and adjustment of the mA and/or kV according to patient size, radiatio n dose was kept as low as reasonably achievable to obtain optimal diagnostic quality images. FINDINGS: AORTIC ARCH: There is a three-vessel origin of the great vessels from the aorta. No evidence of ostial narrowing. RIGHT CAROTID: The common carotid artery is intact. There is minimal atherosclerotic plaquing of the bifurcation. Th e carotid bulb has a normal configuration without ulceration or narrowing. The internal carotid arter y lumen is smooth without stenosis. The internal carotid is very tortuous throughout its course. The internal carotid above its and displaces the mucosa of the oropharynx medially. The external carotid artery is intact. LEFT CAROTID: The common carotid artery is intact. There is minimal atherosclerotic plaquing of the bifurcation. T he carotid bulb has a normal configuration without ulceration or narrowing. The internal carotid art chucho lumen is smooth without stenosis. The external carotid artery is intact. VERTEBRALS: The left vertebral is diminutive in size. No stenotic lesions are seen. CONCLUSION: 1. No hemodynamically significant carotid artery stenosis identified. 2. The course of the right internal carotid is very tortuous. This courses through the right paraphar yngeal space and abuts the soft tissues of the right side of the oral pharynx. There is displacement of the soft tissues medially. There is only a thin covering of tonsillar tissue above this. Pelon Lira MD on January 26, 2017 at 16:13 Board Certified Radiologist. This report was verified electronically.
--- NOTE | 2017-01-26 19:12 | HHI.PR ---
Subjective Remarks Follow-up on patient with dizziness and hypokalemia. Patient states she feels well. No new complaints today. History of right-sided carotid artery aneurysm , patient witnessed eating dinner without any noticeable dysphagia. Objective Vitals Vital Signs Date Time Temp Pulse Resp B/P Pulse Ox O2 Delivery O2 Flow Rate FiO2 01/26/17 18:02 96.9 62 16 179/85 92 01/26/17 14:43 96.2 66 14 170/85 92 01/26/17 10:26 96.5 63 16 134/80 93 01/26/17 08:00 66 01/26/17 04:00 97.0 69 20 156/73 92 01/26/17 00:00 97.1 71 18 159/79 96 01/25/17 22:00 69 01/25/17 20:00 97.2 72 18 144/66 98 I/O 01/25/17 01/25/17 01/25/17 01/26/17 01/26/17 01/26/17 07:00 15:00 23:00 07:00 15:00 23:00 Intake Total 455 ml 450 ml 740 ml 630 ml Output Total 0 ml Balance 455 ml 450 ml 740 ml 630 ml Intake Oral 0 ml 450 ml 240 ml IV Total 455 ml 500 ml 630 ml Output Urine Total 0 ml # Voids 2 6 3 # Bowel Movements 0 0 Result Diagram: 01/24/17 1450 01/26/17 0900 Imaging Last 48 hours Impressions Neck CTA 01/25/17 0000 Signed Impressions: Service Date/Time: January 14:39 - CONCLUSION: 1. No hemodynamically significant carotid artery stenosis identified. 2. The course of the right internal carotid is very tortuous. This courses through the right parapharyngeal space and abuts the soft tissues of the right side of the oral pharynx. There is displacement of the soft tissues medially. There is only a thin covering of tonsillar tissue above this. Pelon Lira MD Objective Remarks GENERAL: This is a well-nourished, well-developed patient, in no apparent distress. Patient sitting up in bed eating dinner. AandO 3. SKIN: Warm and dry. HEAD: Atraumatic. Normocephalic. EYES: EOMI. ENT: Nose without bleeding, purulent drainage or septal hematoma. 3cm pulsating right sided mass noted in posterior pharynx. Airway patent. NECK: Trachea midline. No JVD or lymphadenopathy. Supple, nontender, no meningeal signs. CARDIOVASCULAR: Regular rate and rhythm without murmurs, gallops, or rubs. RESPIRATORY: Clear to auscultation. Breath sounds equal bilaterally. No wheezes , rales, or rhonchi. GASTROINTESTINAL: Abdomen soft, non-tender, nondistended. No hepato-splenomegaly , or palpable masses. No guarding. MUSCULOSKELETAL: Extremities without clubbing or cyanosis. Trace edema RLE. LLE wrapped in SIGIFREDO s/p sclerotherapy. No calf tenderness. NEUROLOGICAL: Awake and alert. Moves all extremities. No focal neurologic deficit. Medications and IVs Current Medications Medications (Trade) Dose Ordered Sig/Homer Route Start Time Stop Time Status Last Admin (NS Flush) 2 ml BID IV FLUSH 01/24/17 21:00 01/25/17 21:00 (NS Flush) 2 ml UNSCH PRN IV FLUSH 01/24/17 19:30 (Vasotec Inj) 1.25 mg Q4H PRN IV 01/24/17 19:30 (D50w (Vial) Inj) 25 ml UNSCH PRN IV PUSH 01/24/17 19:30 (Glucagon Inj) 1 mg UNSCH PRN OTHER 01/24/17 19:30 (Elavil) 50 mg HS PO 01/24/17 21:00 01/25/17 21:45 (Lipitor) 40 mg HS PO 01/24/17 21:00 01/25/17 21:45 (CeleXA) 20 mg DAILY PO 01/25/17 09:00 01/26/17 10:35 (Vasotec) 5 mg DAILY PO 01/25/17 09:00 01/26/17 10:35 (Levemir Inj) 20 units HS SQ 01/24/17 21:00 Hold 01/24/17 21:30 (Singulair) 10 mg HS PO 01/24/17 21:00 01/25/17 21:45 (Gunner-24) 400 mg DAILY PO 01/25/17 09:00 01/26/17 10:35 Pantoprazole Sodium 40 mg 40 mg DAILY PO 01/25/17 09:00 01/26/17 10:35 (NS 1000 ml Inj) 1,000 ml @ 60 mls/hr [id number] IV 01/25/17 08:45 01/26/17 17:21 (Ecotrin Ec) 81 mg DAILY PO 01/25/17 09:00 01/26/17 10:35 A/P Assessment and Plan 81-year-old female with a past medical history significant for insulin- dependent diabetes, hypertension, COPD, dyslipidemia, depression and history of carotid artery aneurysm who [facility] ED with complaints of dizziness. Admitted overnight per discussion with ED physician patient is a high risk for TIA needed observation admission to Rule out TIA Dehydration and likely vasovagal episode - Recent suspected gastroenteritis infection causing dehydration followed by likely vasovagal episode after receiving varicose vein leg injections - Patient much improved. No recurrence of dizziness or weakness since admission. - Discontinue telemetry - Chest x-ray personally interpreted and unremarkable. Carotid ultrasound shows no evidence of significant stenosis. CT of the head negative. - Patient appears to be eating well. DC IV fluids. - Up with PT - patient able to ambulate 200 feet - Echocardiogram completed: Ejection fraction 65% with no wall motion abnormalities, mild regurg of the mitral valve and tricuspid valve, mildly increased systolic pressure with PA pressure 42mm Hg - Holter monitor as outpatient - No change with orthostatic BP measurement - Carotid ultrasound: No evidence for hemodynamically significant stenosis. Hypertension - Controlled - continue home meds - monitor BP Diabetes - Blood sugar 195 - Accu-Chek - Insulin sliding scale - A1c is 7.4 - Levemir 10 units subcutaneous COPD - Continue home bronchodilators - Supplemental oxygen when necessary - DuoNeb's when necessary - Theophylline level low 5.4 Dyslipidemia - Continue home statin - Lipid panel well within normal limits Hypokalemia - Resolved Right-sided carotid artery aneurysm - Patient states she does not follow up with anyone - History of left mastoidectomy and excision of cholesteatoma as well as partial thyroidectomy secondary to mass on the isthmus - Carotid ultrasound obtained this admission unable to appreciate aneurysm on study - Complaining it is increasing in size and causing difficulty with swallowing - Strong family history CVA - Patient evaluated by Dr. Hendricks, very much appreciate his assistance. CTA of the neck completed showing right internal carotid coursing through the right parapharyngeal space and abuts the soft tissues of the right side of the oral pharynx with displacement of the soft tissues medially and only thin covering of tonsillar tissue above this. We'll await Dr. Hendricks is recommendation DVT prophylaxis - SCD/MIKEL lyn Written by Janeth Aguilar PA-C acting as scribe for Dr. Sung on 01/26/17 at 19:11. All or portions of this note were transcribed by scribe Janeth Aguilar PA-C. I, Dr. Miguel Angel Sung personally performed the history, physical exam, and medical decision making; and confirmed the accuracy of the information in the transcribed note. Authenticated by Dr. Miguel Angel Sung on 01/27/17 at 07:22. Janeth Aguilar Jan 26, 2017 19:12 Miguel Angel Sung MD Jan 27, 2017 07:23
[2017-01-26] MEDS: RESP: ALBUTEROL 2.5 MG/IPRATROPIUM 0.5 MG NEB (PRN) NEB (19:23)
[2017-01-26] MEDS: AMITRIPTYLINE HCL 50 MG TAB PO SCH (20:58)
[2017-01-26] MEDS: ATORVASTATIN 40 MG TAB PO SCH (20:58)
[2017-01-26] MEDS: MONTELUKAST SODIUM 10 MG TAB PO SCH (20:58)
[2017-01-26] MEDS ORDERED: INSULIN DETEMIR 100 UNITS/ML VIAL SQ SCH (21:00)
[2017-01-27] VITALS: BP 150/65; PULSE 65; RESP 18; TEMP 97.1; O2SAT 97
[2017-01-27 04:00] VITALS: BP 159/82; PULSE 61; RESP 18; TEMP 95.2; O2SAT 95
[2017-01-27] MEDS: INSULIN ASPART SUPPLEMENTAL SCALE SQ SCH ×2 (05:44→11:49)
[2017-01-27 08:00] VITALS: BP 144/74; PULSE 58; RESP 16; TEMP 97.3; O2SAT 92
[2017-01-27] MEDS: RESP: ALBUTEROL 2.5 MG/IPRATROPIUM 0.5 MG NEB (PRN) NEB (09:28)
[2017-01-27] MEDS: ASPIRIN EC 81 MG TABEC PO SCH (09:34)
[2017-01-27] MEDS: ENALAPRIL MALEATE 5 MG TAB PO SCH (09:34)
[2017-01-27] MEDS: PANTOPRAZOLE SOD 40 MG DELAYED RELEASE TAB PO SCH (09:34)
[2017-01-27] MEDS: THEOPHYLLINE 200 MG EXTENDED RELEASE CAP PO SCH (09:34)
[2017-01-27] MEDS: CITALOPRAM HYDROBROMIDE 20 MG TAB PO SCH (09:35)
[2017-01-27] MEDS: SODIUM CHLORIDE 0.9% FLUSH 10 ML FLUSH IV FLUSH SCH (09:38)
--- NOTE | 2017-01-27 11:14 | PD.CAR.PN ---
CVT Progress Note Subjective/Hospital Course: 01/26/17 I reviewed the CTA of the carotids and indeed patient does not have an aneurysm of the carotid artery. With patient has is a tortuous right internal carotid artery that's abutting soft tissues and hence the transduction of the pulsatile signal when palpated This is a normal variant of the carotid artery no disease is detected and patient can be discharged Will not need follow-up with me Will sign off Thanks J Objective: Vital Signs Date Time Temp Pulse Resp B/P Pulse Ox O2 Delivery O2 Flow Rate FiO2 01/27/17 08:04 Room Air 01/27/17 08:00 97.3 58 16 144/74 92 01/27/17 04:00 95.2 61 18 159/82 95 01/27/17 04:00 Room Air 01/27/17 00:00 Room Air 01/27/17 00:00 97.1 65 18 150/65 97 01/26/17 20:00 98.4 73 18 189/83 96 01/26/17 20:00 88 01/26/17 20:00 Room Air 01/26/17 18:02 96.9 62 16 179/85 92 01/26/17 14:43 96.2 66 14 170/85 92 Result Diagram: 01/24/17 1450 01/26/17 0900 Mai Hendricks MD Jan 27, 2017 11:14
--- NOTE | 2017-01-27 11:14 | HHI.DCPOC ---
Discharge Care Plan Diagnosis: (1) Hypokalemia (2) Dizziness (3) Dehydration (4) Vaso vagal episode (5) Hypokalemia Goals to Promote Your Health * To prevent worsening of your condition and complications * To maintain your health at the optimal level Directions to Meet Your Goals Take your medications as prescribed Follow your dietary instruction Follow activity as directed Keep your appointments as scheduled Take your immunizations and boosters as scheduled If your symptoms worsen call your PCP, if no PCP go to Urgent Care Center or Emergency Room Smoking is Dangerous to Your Health. Avoid second hand smoke Call the 24-hour hour crisis hotline for domestic abuse at Janeth Aguilar Jan 27, 2017 11:14
--- NOTE | 2017-01-27 11:31 | HHI.DS ---
Discharge Summary Admission Date Jan 24, 2017 at 18:36 Discharge Date: Jan 27, 2017 Admitting Diagnosis dizziness/hypokalemia vasovagal episode (1) Vaso vagal episode ICD Code: R55 (2) Dizziness ICD Code: R42 (3) Hypokalemia ICD Code: E87.6 Procedures None Brief History - From Admission This is a 81-year-old female with a past medical history significant for insulin -dependent diabetes, hypertension, COPD, dyslipidemia, depression and history of carotid artery aneurysm with resultant dysphagia who presented to [facility] ED with complaints of dizziness. Patient states that she was at a physician's office getting injections for her varicose veins when shortly following the procedure she developed dizziness and unsteady gait with feeling of generalized weakness. Patient states she was given sugar water by the tech with improvement in her symptoms. She denies any associated chest pain, shortness of breath, nausea, vomiting, cough, palpitations, vision changes, hearing loss, slurred speech, focal weakness or numbness or tingling. She does report having a sensation that she was going to pass out. Patient states that she was recently ill with nausea, vomiting and diarrhea for a week after being visited by her sick grandchildren. As a result she had not been eating and drinking her normal amount and states that she thinks she might have been dehydrated. She has taken her insulin for 3 days due to her decrease in appetite. The symptoms had resolved about 2 days prior to having her varicose veins injected. She was also treated for shingles a few weeks ago. She reports that she was basically feeling back to her normal self by the time she came to the ED. In the ED, carotid ultrasounds were obtained and showed no evidence for hemodynamically significant stenosis. Chest x-ray showed no acute disease. Head CT was normal. Glucose was 145. CBC was unremarkable. She was noted to have some hypokalemia with a potassium of 3.0 and received repletion while in the ED. Troponin was less than 0.02. CBC/BMP: 01/24/17 1450 01/26/17 0900 Significant Findings Laboratory Tests Test 3/21/17 01/24/17 01/25/17 01/26/17 14:50 15:05 05:33 09:00 Mean Platelet Volume 6.8 FL (7.0-11.0) Monocytes (%) (Auto) 12.1 % (0.0-8.0) Potassium Level 3.0 MEQ/L 3.1 MEQ/L (3.5-5.1) (3.5-5.1) Blood Urea Nitrogen 6 MG/DL (7-18) 4 MG/DL (7-18) 5 MG/DL (7-18) Random Glucose 145 MG/DL 61 MG/DL 195 MG/DL (74-106) (74-106) (74-106) Calcium Level 8.3 MG/DL 7.9 MG/DL (8.5-10.1) (8.5-10.1) Troponin I LESS THAN 0.02 NG/ML (0.02-0.05) Total Protein 6.3 GM/DL (6.4-8.2) Albumin 3.2 GM/DL (3.4-5.0) Hemoglobin A1c 7.4 % (4.3-6.0) Theophylline Level 5.4 MCG/ML (10.0-20.0) Urine Ketones TRACE mg/dL (NEG) Urine Bacteria RARE /hpf (NONE) Chloride Level 108 MEQ/L (98-107) Estimat Glomerular Filtration 84 ML/MIN (>89) 82 ML/MIN (>89) Rate Cholesterol Level 73 MG/DL (120-200) Imaging Last 72 hours Impressions Neck CTA 01/25/17 0000 Signed Impressions: Service Date/Time: January 14:39 - CONCLUSION: 1. No hemodynamically significant carotid artery stenosis identified. 2. The course of the right internal carotid is very tortuous. This courses through the right parapharyngeal space and abuts the soft tissues of the right side of the oral pharynx. There is displacement of the soft tissues medially. There is only a thin covering of tonsillar tissue above this. Pelon Lira MD Head CT 01/24/17 1437 Signed Impressions: Service Date/Time: Tuesday, January 24, 2017 15:53 - CONCLUSION: Normal examination. Kyle Morejon MD Chest X-Ray 01/24/17 1426 Signed Impressions: Service Date/Time: Tuesday, January 24, 2017 14:32 - CONCLUSION: No acute disease. Elevation of the right hemidiaphragm. El Flores MD PE at Discharge GENERAL: This is a well-nourished, well-developed patient, in no apparent distress. A&O 3. Pleasant and cooperative. SKIN: Warm and dry. HEAD: Atraumatic. Normocephalic. EYES: EOMI. ENT: Nose without bleeding, purulent drainage or septal hematoma. 3cm pulsating right sided mass noted in posterior pharynx. Airway patent. NECK: Trachea midline. No JVD or lymphadenopathy. Supple, nontender, no meningeal signs. CARDIOVASCULAR: Regular rate and rhythm without murmurs, gallops, or rubs. RESPIRATORY: Clear to auscultation. Breath sounds equal bilaterally. No wheezes , rales, or rhonchi. GASTROINTESTINAL: Abdomen soft, non-tender, nondistended. No hepato-splenomegaly , or palpable masses. No guarding. MUSCULOSKELETAL: Extremities without clubbing or cyanosis. Trace edema RLE. LLE wrapped in SIGIFREDO s/p sclerotherapy. No calf tenderness. NEUROLOGICAL: Awake and alert. Moves all extremities. No focal neurologic deficit. Pt update on day of discharge Patient feels well today with no complaints. No chest pain, shortness of breath or cough. No fever. No difficulty with swallowing, but she does states it happens from time to time. Discussed with patient results of CTA which does not appear to indicate an aneurysm. Hospital Course Patient admitted to observation and monitor on telemetry for any signs of arrhythmia. Patient's dizziness felt to be due to dehydration with a history of recent suspected gastroenteritis and vasovagal episode following injection. Treated with IV fluid with good response. Chest x-ray was unremarkable. Carotid ultrasound revealed no evidence of significant stenosis. CT of the head was also negative. Orthostatic blood pressures were measured and did not show any postural changes. She participated extremely well with physical therapy. Patient with a history of right-sided carotid artery aneurysm her report who had some complaints of intermittent dysphagia. Dr. Hendricks was consult to see the patient for further evaluation. CTA was ordered which had to be followed on an iodine allergy protocol and revealed no hemodynamically significant carotid artery stenosis, torturous right internal carotid which courses through the right parapharyngeal space and abuts soft tissue of the right side of the oral pharynx displacing the soft tissues medially. Dr. Hendricks did not feel this was indicative of an aneurysm but rather a normal variant of the carotid artery without detectable disease and no further follow- up required. Patient was cleared for discharge home. Pt Condition on Discharge: Stable Discharge Disposition: Discharge Home Discharge Time: > 30 minutes Discharge Instructions DIET: Follow Instructions for: Heart Healthy Diet, Diabetic Diet Activities you can perform: Regular-No Restrictions Follow up Referrals: PCP Follow-up - 1 Week Continued Medications: Amitriptyline (Amitriptyline) 50 Mg Tab 50 MG PO HS Control Depression #30 Ref 0 TAB Atorvastatin (Lipitor) 40 Mg Tab 40 MG PO HS Cholesterol Management #30 Ref 0 TAB Budesonide Neb (Budesonide Neb) 0.25 Mg/2 Ml Neb 0.25 MG NEB DAILY NEB PRN SOB/WHEEZING #30 Ref 0 NEBULE Citalopram (Citalopram) 20 Mg Tab 20 MG PO DAILY Control Depression #30 Ref 0 TAB Enalapril (Vasotec) 5 Mg Tab 5 MG PO DAILY #30 Ref [address] (Nexium) 40 Mg Capdr 40 MG PO DAILY Ref 0 CAP Insulin Glargine Inj (Lantus Inj) 1,000 Unit/10 Ml Vial 20 UNITS SQ HS Blood Sugar Management Ref 0 VIAL Insulin Lispro (Human) Inj (Humalog Inj) 1,000 Unit/10 Ml Vial 5-25 UNITS SQ ACHS Max dose at bedtime:( )units; sugars < 70,(0)units; sugars 150-199,(5)units; sugars 200-249,(10)units; sugars 250-299,(15)units; sugars 300 -349,(20)units; sugars more than 349,(25)units. Blood Sugar Management #1 Ref 0 VIAL Ipratropium-Albuterol Neb (Duoneb) 0.5-2.5 Mg/3 Ml Neb 1 NEBULE INH Q8HR NEB PRN SOB/WHEEZING #90 Ref 0 NEBULE Montelukast (Singulair) 10 Mg Tab 10 MG PO HS #30 Ref 0 TAB Potassium Chloride ER (K-Tab) 20 Meq Tab 20 MEQ PO BID Electrolyte Replacement #10 Ref 0 TAB Theophylline ER 24 HR (Theophylline ER 24 HR) 400 Mg Tab 400 MG PO DAILY #30 Ref 0 TAB Additional Information Written by Janeth Aguilar PA-C acting as scribe for Dr. Sung on 01/27/17 at 11:31. All or portions of this note were transcribed by scribe Janeth Aguilar PA-C. I, Dr. Miguel Angel Sung personally performed the history, physical exam, and medical decision making; and confirmed the accuracy of the information in the transcribed note. Authenticated by Dr. Miguel Angel Sung on 01/27/17 at 13:17. Janeth Aguilar Jan 27, 2017 11:31 Miguel Angel Sung MD Jan 27, 2017 13:17
[2017-01-27 12:00] VITALS: BP 130/77; PULSE 61; RESP 18; TEMP 97.6; O2SAT 93
--- NOTE | 2017-01-28 11:36 | HM ---
Date Performed: 01/24/2017 Time Performed: 20:27:00 HOOKUP DATE: 01/24/17 08:27:00 PM Tue ANALYSIS START TIME: 01/24/2017 8:32:00 PM ANALYSIS END TIME: 01/25/2017 5:46:41 PM PATIENT AGE: 81 PATIENT HEIGHT PATIENT WEIGHT DRUG LIST PATIENT DIAGNOSIS TEST NARRATIVE: The patient's average heart rate was 66 BPM. No episodes of tachycardia wer e noted. No episodes of bradycardia were noted. No pauses exceeding 2.0 seconds were noted. 1 ventricular ectopics, which represented < 1% of the total beat count, were noted. The highest vent ricular ectopic frequency occurred from 03:00 AM to 04:00 AM Wed. During this time 1 VE(s) occurred. Ventricular ectopics were observed as 1 isolated beat(s) only. No couplets or runs were noted. 4 supraventricular ectopics, which represented < 1% of the total beat count, were noted. The highes t supraventricular ectopic frequency occurred from 03:00 PM to 04:00 PM Wed. During this time 2 SVE( s) occurred. No episodes of ST depression (defined as -1.0 mm or more) were noted in channel 1. No episodes of ST depression (defined as -1.0 mm or more) were noted in channel 2. No episodes of ST depression (defined as -1.0 mm or more) were noted in channel 3. NO DIARY RETURNED TEST INTERPRETATION: Sinus rhythm Rare PACs Rare PVCs No pause No supraventricular tachycardia No ventricular tachycardia observed The re is no entry in the diary Signed by : Nerissa Izquierdo
== END 2017-01-27 14:12 | disposition home or self-care (01) ==
LOC: PHED 14:10 → PHEDA 18:36 → PH3B 23:28
PROVIDERS: ADMIT Family Medicine; ATTEND Family Medicine
DX: R55 Syncope and collapse (principal); E87.6 Hypokalemia; J44.9 Chronic obstructive pulmonary disease, unspecified; I10 Essential (primary) hypertension; E78.5 Hyperlipidemia, unspecified; I72.0 Aneurysm of carotid artery; E11.9 Type 2 diabetes mellitus without complications; F32.9 Major depressive disorder, single episode, unspecified; Z79.4 Long term (current) use of insulin; K21.9 Gastro-esophageal reflux disease without esophagitis; Z96.652 Presence of left artificial knee joint; Z88.8 Allergy status to other drugs, medicaments and biological substances; Z82.3 Family history of stroke
CPT/HCPCS: 70450; 70498; 71010; 80048; 80053; 80061; 80198; 81001; 82948; 83036; 83735; 84484; 85025; 85610; 85730; 93005; 93225; 93226; 93306; 93880; 94640; 94664; G0378; G8987-GO; G8987-GP; G8988-GO; G8988-GP; G8989-GO; J1815; J7030; J7512; Q0163; Q9967